=== PATIENT | male | born 1950 | race Caucasian/White ===

== ENCOUNTER 2023-06-23 05:44 | Day surgery (SDC) | payer MEDICARE ==
[2023-06-23] MEDS ORDERED: HEPARIN SODIUM,PORCINE 10,000 UNIT in SODIUM CHLORIDE 0.9% 1,000 ML IRRIGATION PRN (05:47)
[2023-06-23] MEDS ORDERED: HEPARIN SODIUM,PORCINE (1 ML) 2,500 UNIT in SODIUM CHLORIDE 0.9% 250 ML IRRIGATION PRN (05:47)
[2023-06-23] MEDS ORDERED: SODIUM CHLORIDE 0.9% 1,000 ML in EMPTY BAG 1 BAG IV SCH (05:47)
[2023-06-23] MEDS ORDERED: NITROGLYCERIN SL TABS 0.4 MG TAB SUBLINGUAL PRN (05:47)
[2023-06-23] MEDS ORDERED: ALPRAZolam 0.5 MG TAB PO PRN (05:47)
[2023-06-23] MEDS ORDERED: ALPRAZolam 0.25 MG TAB PO PRN (05:47)
[2023-06-23] MEDS ORDERED: SODIUM CHLORIDE 0.9% 1,000 ML IV ONE (06:05)
[2023-06-23 06:36] VITALS: RESP 16; TEMP 98.6
[2023-06-23 06:43] LABS: Anisocytosis Slight; HCT 37.7 % (39.0-53.0); Hypochromasia Slight; MCHC 31.9 g/dL (31.0-37.0); MCV 84.5 fL (80.0-100.0); Mean Platelet Volume 8.1; Platelet Count 169 k/uL (150-450); RBC 4.47 m/uL (4.30-5.90); RDW 17.3 % (11.5-15.5); WBC 22.7 k/uL (3.8-10.6)
[2023-06-23 06:59] LABS: Band Neutrophils % 1 %; Eosinophils # (M) 0.23 k/uL (0-0.7); Lymphocytes # (M) 17.93 k/uL (1.0-4.8); Monocytes # (M) 0.45 k/uL (0-1.0); Neutrophils % (M) 17 %; Nucleated Red Blood Cells 0 /100 WBC (0-0); Total Cells Counted 100
[2023-06-23] MEDS ORDERED: ATORVASTATIN 80 MG TAB PO ONE (07:00)
[2023-06-23] MEDS ORDERED: ASPIRIN 325 MG TAB PO ONE (07:00)
[2023-06-23 07:01] LABS: Anisocytosis (M) Present; Ovalocytes Present
[2023-06-23 07:10] LABS: African American GFR (CKD) 79 (>60 ml/min/1.73 sqM); Blood Urea Nitrogen 16 mg/dL (9-20); Calcium 8.3 mg/dL (8.4-10.2); Carbon Dioxide 25 mmol/L (22-30); Glucose 136 mg/dL (74-99); Non-African American GFR(CKD) 69 (>60 ml/min/1.73 sqM)
[2023-06-23] MEDS ORDERED: fentaNYL (PF) 50 MCG/ML 2 ML AMP ONE (07:28)
[2023-06-23] MEDS ORDERED: HEPARIN SODIUM 1,000 UN/ML (10ML VL) ONE (07:28)
[2023-06-23] MEDS ORDERED: VERAPAMIL 2.5 MG/ML 2 ML AMP ONE (07:28)
[2023-06-23] MEDS ORDERED: LIDOCAINE 1% INJ 10MG/ML (20 ML MDV) ONE (07:28)
[2023-06-23 07:34] LABS: Anion Gap 5 mmol/L; Chloride 106 mmol/L (98-107); Potassium 4.3 mmol/L (3.5-5.1); Sodium 136 mmol/L (137-145)
[2023-06-23] MEDS ORDERED: fentaNYL (PF) 50 MCG/1 ML VIAL IVP ONE (07:49)
[2023-06-23] MEDS ORDERED: LIDOCAINE 1% INJ 10MG/ML (20 ML MDV) SQ ONE (07:53)
[2023-06-23] MEDS ORDERED: VERAPAMIL SYRINGE (5 MG/10 ML) INTRAARTER ONE (07:59)
[2023-06-23] MEDS ORDERED: HEPARIN SODIUM 1,000 UN/ML (10ML VL) IV ONE (07:59)
[2023-06-23] MEDS ORDERED: IOPAMIDOL-370 100ML BTL INJ ONE (08:07)
[2023-06-23] MEDS ORDERED: RX INFO: IV CONTRAST WAS GIVEN 1 EACH MISC MISCELLANE PRN (08:21)
--- NOTE | 2023-06-23 08:26 | P.CARDCATH ---
Date of Procedure: 06/23/23 Description of Procedure: Cardiac Catheterization: The patient is a 72-year-old male who was recently found to have a colonic mass and as a part of his evaluation underwent a stress test that showed evidence of stress-induced ischemia. Recommendations were made regarding cardiac catheterization, the risks and the complications were discussed with the patient who is in full understanding and agreement. Procedure Description: Patient was brought to clinical laboratory service teacher in fasting semi-sedated state after receiving Fentanyl and Benadryl achieiving moderate conscious sedated state. Using Xylocaine Anesthesia and Seldinger technique, a 6-Uzbek sheath was introduced in the right radial artery . Subsequently, selective coronary angiography was performed using a 5-Uzbek 3.5 bend Elizabeth catheter. Multiple views of the coronary artery including hemiaxial views were obtained. The 5-Uzbek pigtail catheter was used to cross the aortic valve and LVEDP was calculated. Following that, catheter and sheath were removed. Hemostasis was obtained with deployment of TR band . There was no immediate complication. Patient was returned to room in stable condition. Of note, the patient received a total of 5000 units of intravenous heparin as well as intra-arterial verapamil. Findings: Left main: This is a short sized vessel, bifurcating into LAD and left circumflex, left main has no obstructive disease LAD: This is a large size vessel, reaching to the apex, giving rise to 2 diagonal branch. The LAD has a 10% plaque proximally and in the midsegment. Left circumflex: This is a nondominant large size vessel, giving rise to 2 obtuse marginal branch, the left circumflex is no evidence of obstructive disease RCA: This is a large dominant vessel, bifurcating distally to PDA and PLV, the right coronary artery and its branches have no obstructive disease Left Ventriculogram: Not performed Hemodynamics: There was no gradient across the aortic valve, LVEDP was 14-16 mmHg Conclusion: 1. Mild disease in the LAD 2. Right dominance 3. No obstructive disease in the RCA and left circumflex Recommendations: The patient will continue present therapy, the findings and recommendations were discussed with him and he is in full agreement. He is stable from the cardiac standpoint to proceed with his abdominal surgery. Duration of sedation is 16 minutes.
[2023-06-23] MEDS ORDERED: SODIUM CHLORIDE 0.9% 1,000 ML IV SCH (08:30)
[2023-06-23] MEDS ORDERED: TAMSULOSIN 0.4 MG CAP.ER.24H PO SCH (09:00)
[2023-06-23] MEDS ORDERED: FERROUS SULFATE 325 MG TAB PO SCH (09:00)
[2023-06-23] MEDS ORDERED: ASPIRIN 81 MG PO SCH (09:00)
[2023-06-23] MEDS ORDERED: allopurinoL 300 MG TAB PO SCH (09:00)
[2023-06-23 13:26] VITALS: BP 138/72; PULSE 64
== END 2023-06-23 12:00 | disposition home or self-care (01) ==
LOC: CATHCVL 05:44
PROVIDERS: ATTEND Internal Medicine Interventional Cardiology
DX: I25.10 Atherosclerotic heart disease of native coronary artery without angina pectoris (principal); C91.10 Chronic lymphocytic leukemia of B-cell type not having achieved remission; Z82.49 Family history of ischemic heart disease and other diseases of the circulatory system; Z87.891 Personal history of nicotine dependence; Z79.899 Other long term (current) drug therapy
CPT/HCPCS: 93458; 80048; 85025; C1769 ×2; C1894; J2001; J1644; Q9967; J3010